=== PATIENT | male | born 1965 | race Caucasian/White ===

== ENCOUNTER 2017-03-05 15:11 | Emergency (ER) | payer SELFPAY ==
[2017-03-05 15:18] VITALS: BP 144/101
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
[2017-03-05] MEDS ORDERED: HYDROcodone/ACETAMIN 5-325 MG* 1 TAB PO ONE (15:45)
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
== END 2017-03-05 16:30 | disposition home or self-care (01) ==
LOC: UCEAST 15:11
DX: S32.010A Wedge compression fracture of first lumbar vertebra, initial encounter for closed fracture (principal); V57.0XXA Driver of pick-up truck or van injured in collision with fixed or stationary object in nontraffic accident, initial encounter; F17.210 Nicotine dependence, cigarettes, uncomplicated
CPT/HCPCS: 72080; 99212; G0463

== ENCOUNTER 2017-03-06 14:40 | Emergency (ER) | payer SELFPAY ==
[2017-03-06 14:56] VITALS: BP 150/117
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
== END 2017-03-06 15:57 | disposition left against medical advice (07) ==
LOC: UCEAST 14:40
DX: S32.012A Unstable burst fracture of first lumbar vertebra, initial encounter for closed fracture (principal)
CPT/HCPCS: 72131; 99212; G0463